=== PATIENT | male | born 1990 | race Caucasian/White ===

== ENCOUNTER 2019-07-09 08:36 | Emergency (ER) | payer OTHER ==
[~2019-07-09] VITALS: Ht 172.7 cm; Wt 85.3 kg
== END 2019-07-09 14:05 | disposition home or self-care (01) ==
LOC: ER 08:36
DX: K52.89 Other specified noninfective gastroenteritis and colitis (principal)

== ENCOUNTER → 2022-11-03 09:08 | Outpatient (CLI) | payer OTHER | END | disposition home or self-care (01) | LOC: LAB 09:08 | PROVIDERS: ATTEND Obstetrics & Gynecology | DX: Z20.828 Contact with and (suspected) exposure to other viral communicable diseases (principal); Z20.818 Contact with and (suspected) exposure to other bacterial communicable diseases ==